=== PATIENT | female | born 1935 | race Caucasian/White ===

== ENCOUNTER 2020-02-04 06:52 | Outpatient (CLI) | payer MEDICARE, OTHER, SELFPAY ==
--- NOTE | 2020-02-04 07:01 | NM_ITS ---
WS: [id number] NUCLEAR MEDICINE HIDA SCAN WITH GALLBLADDER EJECTION FRACTION HISTORY: DISORDER OF GALLBLADDER COMPARISON: None available. TECHNIQUE: The patient was intravenously injected with 7.8 mCi of TC99m Mebrofenin. Immediate imaging over the right upper quadrant was followed by 5 minute image and additional images for a total of 60 minutes. Normal uptake of radiotracer throughout the liver. Activity identified in the gallbladder at 40 minutes and well distended by 60 minutes. Activity in the proximal small bowel was seen by 20 minutes. Good washout of the radiotracer from the liver by 60 minutes. The patient then drank 8 ounces of Ensure Plus. Ejection fraction at 60 minutes was 81%. Normal GB ej ection fraction is 35-75%. Post fatty meal symptoms: None. NM/NM hepatobiliary w phar* [id number] IMPRESSION: 1. Normal HIDA scan. 2. Normal gallbladder ejection fraction.
== END 2020-02-04 06:53 | disposition home or self-care (01) ==
PROVIDERS: Family Provider Internal Medicine; Visit Provider Family Medicine
DX: K82.9 Disease of gallbladder, unspecified (principal)
CPT/HCPCS: 78227; A9537

== ENCOUNTER → 2020-06-07 10:37 | Outpatient (BNVA) | payer MEDICARE, OTHER, SELFPAY | PROVIDERS: Family Provider Internal Medicine; Visit Provider Surgery | DX: Z20.828 Contact with and (suspected) exposure to other viral communicable diseases (principal) | CPT/HCPCS: 87635 ==

== ENCOUNTER 2020-06-10 06:24 | Day surgery (SDC) | payer MEDICARE, OTHER, SELFPAY ==
[2020-06-09 13:13] VITALS: BMI 24.4
[2020-06-10] VITALS (10 sets, daily range): BP systolic 143–167; BP diastolic 67–84; PULSE 72–95; RESP 14–23; TEMP 36.1–36.9; O2SAT 93–100
--- NOTE | 2020-06-10 06:56 | ANES.PREANE2 ---
Pre-Anesthetic Assessment Pre-Anesthetic Assessment: Height/Weight: Height 1.61 m Weight 63.503 kg Temp Pulse Resp BP Pulse Ox 97.5 F L 74 18 164/84 98 06/10/20 06:36 06/10/20 06:36 06/10/20 06:36 06/10/20 06:36 06/10/20 06:36 Preop Diagnosis: Chronic cholecystitis Proposed Procedure: Operation Date: 06/10/20 08:10 Proposed Procedures p [place]aroscopic [place] [address]709 K82.9(Not Applicable) - Fahad Lee MD Was Beta Mariela taken within 24 hours: N/A Last intake: Intake Last Liquid Date 06/09/20 Last Liquid Time 18:00 Last Solid Date 06/09/20 Last Solid Time 15:00 Social: Social History: No alcohol and No tobacco Exam: Pre-Anes Outpt Exam: alert, oriented x 3, clear to auscultation bilaterally and regular rate & rhythm Airway: Submandibular: WNL Cervical ROM: WNL MP: 2 Dentition: False Pulmonary: Pulmonary: None reported CV/HEM: CV/HEM: HTN : : None reported Hepatic: Hepatic: None reported GI: GI: PUD Metabolic: Metabolic: None reported Musc/skel: Musc/skel: OA/DJD Neuropsych: Neuropsych: None reported Anesthetic Plan: ASA status: 2 Anesthesia: General PFSH Anesthesia PFSH: Medical History Hypertension Surgical History H/O shoulder surgery History of colonoscopy (~2009) History of partial hysterectomy Family History Mother Cancer Diabetes Mother Diabetes Father Diabetes Heart disease Social History Smoking and tobacco status: never smoked Alcohol intake: never Adopted: No Marital status: / Number of children: 4 service: No History of recent travel: No Data Anesthesia Cardiac Studies: No Data to Display
[2020-06-10] MEDS: sodium chloride 0.9% 1,000 ML 30 ML IV (07:00)
--- NOTE | 2020-06-10 07:01 | W.PM.OPSUD ---
Surgery/Procedure H&P Update DATE OF PROCEDURE: June 10, 2020 DATE H&P PERFORMED: 05/26/20 H&P UPDATE INFORMATION: I have reviewed H&P completed within last 30 days, I have examined patient prior to procedure and No changes to prior documentation PREOP DIAGNOSIS: Chronic cholecystitis PLANNED PROCEDURE: Operation Date: 06/10/20 08:10 Proposed Procedures p Laparoscopic Cholecystectomy poss open 19391 K82.9(Not Applicable) - Fahad Lee MD
--- NOTE | 2020-06-10 09:30 | SUR.PHASEI ---
0920 ORAL AIRWAY REMOVED. SPO2 100% ON SIMPLE MASK.
--- NOTE | 2020-06-10 09:31 | SUR.PHASEI ---
0911 PATIENT TO PACU FROM OR. NO DISTRESS. RR EVEN AND UNLABORED.
[2020-06-10] MEDS: HYDROcodone-acetaminophen 5-325 mg Tablet 1 TAB PO (10:05)
--- NOTE | 2020-06-10 10:25 | ANE.PACU2 ---
Inpatient post-anesthesia follow up: Airway intact: Yes Vital signs: Temperature 97.0 F Pulse Rate 77 Respiratory Rate 18 Blood Pressure 143/67 Pulse Oximetry 94 Oxygen Delivery Me thod Room Air Oxygen Flow Rate 8 Fraction of Inspir ed Oxygen Hydration adequate: Yes Nausea and vomiting: No Pain level: 1 Mental status: Baseline
--- NOTE | 2020-06-11 10:52 | PM.OP ---
Operative Report Date of procedure: June 11, 2020 Pre-op Diagnosis: Chronic cholecystitis Post-op diagnosis: same Procedure Done: Laparoscopic cholecystectomy Specimens removed/disposition: Gallbladder Surgeon: Fahad Lee Anesthesia: General Condition: stable Disposition: PACU Procedure: The patient was taken to the operating room and was intubated under general anesthesia. After the antibiotic had been administered, the abdomen was prepped and draped in a sterile manner. Using a #15 blade, a 1 centimeter infraumbilical curvilinear incision was made and using an open Rodríguez technique the peritoneal cavity was entered. A 10 millimeter port was placed and 15 millimeters of pneumoperitoneum was created. A 10 millimeter, 30 degrees scope was then introduced. Three 5 millimeter ports were placed in the epigastric, midclavicular and the anterior axillary line two fingerbreadths below the costal margin on the right side under the direct visualization. Ratcheted forceps were introduced into the lateral most port and was used to retract the fundus of the gallbladder cephalad and using forceps the infundibulum of the gallbladder was retracted laterally. Using L-hook cautery the peritoneum overlying the Calot's triangle was opened medially and laterally until the cystic duct and the cystic artery were skeletonized. Dissection was carried along the body of the gallbladder and after ensuring critical view of safety, 4 clips applied on the cystic duct and 3 clips applied on the cystic artery and cut leaving, 3 clips on the remaining portion of the duct and 2 clips on the remaining portion of the artery. The rest of the gallbladder was dissected off the liver using L-hook cautery. There was no bleeding or bile leaking noted from the gallbladder fossa and the clips appeared to be in place. An EndoCatch bag was introduced to remove the gallbladder. All the ports were removed under direct visualization and there was no bleeding noted from the port sites. The fascia of the umbilicus was closed using [id number] 0 Vicryl sutures and the subcutaneous tissue was approximated using 3-0 Vicryl sutures. The skin at all four ports were closed using 4-0 Monocryl and Dermabond. A total of 10 millimeters of 0.5% Marcaine was infiltrated around the port sites. The patient was stable throughout the procedure.
== END 2020-06-10 10:30 | disposition home or self-care (01) ==
PROVIDERS: PCP Family Medicine; Visit Provider Surgery
PROC: 0FT44ZZ Resection of Gallbladder, Percutaneous Endoscopic Approach (ICD-10-PCS; CPT 47562; principal; 2020-06-10 08:10)
DX: K81.1 Chronic cholecystitis (principal); I10 Essential (primary) hypertension; Z87.11 Personal history of peptic ulcer disease; M19.90 Unspecified osteoarthritis, unspecified site
CPT/HCPCS: 47562; 12345; 88304; J0131; J0690; J1100; J2405; J2704; J2710; J3010; J3490; J7030

== ENCOUNTER → 2020-08-20 11:22 | Outpatient (BNVA) | payer MEDICARE, OTHER, SELFPAY | PROVIDERS: PCP Family Medicine; Visit Provider Internal Medicine | DX: R10.9 Unspecified abdominal pain (principal) | CPT/HCPCS: 81000 ==